=== PATIENT | female | born 1960 | race Caucasian/White ===

== ENCOUNTER 2021-07-17 07:14 | Outpatient (CLI) | payer OTHER | END 2021-07-17 07:15 | disposition home or self-care (01) | LOC: NUCLEAR 07:14 | DX: R14.0 Abdominal distension (gaseous) (principal); R10.13 Epigastric pain | CPT/HCPCS: 78264; A9541 ==

== ENCOUNTER 2024-08-09 13:27 | Outpatient (CLI) | payer OTHER | END 2024-08-09 13:35 | disposition home or self-care (01) | LOC: TOM 13:27 | PROVIDERS: ATTEND Internal Medicine | DX: I10 Essential (primary) hypertension (principal); Z01.810 Encounter for preprocedural cardiovascular examination; E03.9 Hypothyroidism, unspecified; E78.9 Disorder of lipoprotein metabolism, unspecified; K40.90 Unilateral inguinal hernia, without obstruction or gangrene, not specified as recurrent; E55.9 Vitamin D deficiency, unspecified ==